=== PATIENT | male | born 1950 | race Caucasian/White ===

== ENCOUNTER → 2016-08-15 | Outpatient (CLI) | payer OTHER ==
--- NOTE | 2016-08-15 16:57 | PCVCIMAG ---
EXAM: BILATERAL CAROTID DUPLEX INDICATION: Carotid Occlusive Disease. Previous right carotid endarterectomy. FINDINGS: Doppler Measurements (centimeters per second): RIGHT: Peak CCA-64, Peak ECA-31, Diastolic ICA-30, Peak ICA-82, ICA/CCA Ratio-1.3. LEFT: Peak CCA-90, Peak ECA-151, Diastolic ICA-23, Peak ICA-78, ICA/CCA Ratio-0.9. RIGHT CAROTID: The carotid bulb has minimal plaque. The proximal internal carotid artery shows no significant stenosis. The common carotid artery shows no significant stenosis. The external carotid artery shows no significant stenosis. LEFT CAROTID: The carotid bulb has mild plaque. The proximal internal carotid artery shows <40% stenosis. The common carotid artery shows no significant stenosis. The external carotid artery shows no significant stenosis. Antegrade flow in both vertebral arteries. IMPRESSION: No significant stenosis of the right internal carotid artery with minimal plaque consistent with previous endarterectomy. <40% stenosis of the left internal carotid artery with mild plaque. LOC:[id number]
--- NOTE | 2016-08-15 16:57 | PCVCIMAG ---
EXAM: BILATERAL LOWER EXTREMITY ARTERIAL DUPLEX INDICATION: Peripheral arterial disease. Previous bilateral SFA stents. FINDINGS: Right Leg: Satisfactory arterial waveforms in the common and profunda femoral arteries. There are arterial waveforms throughout the superficial femoral artery and popliteal artery without flow-limiting stenosis. Previous stents in the proximal and distal SFA remain patent. Mild stenosis in the mid superficial femoral artery. Three-vessel runoff is present. Left Leg: Satisfactory arterial waveforms throughout the common/profunda/superficial femoral, popliteal, anterior tibial, peroneal, and posterior tibial arteries. No flow limiting stenosis seen. Previous left SFA stent is maintaining good patency. IMPRESSION: Previous right superficial femoral artery stent proximally and distally are maintaining satisfactory patency. Mild stenosis [place] mid right SFA. Previous left superficial femoral artery stent is maintaining good patency. EXAM: NONINVASIVE ARTERIAL EXAMINATION OF BOTH LOWER EXTREMITIES INCLUDING PRE AND POST EXERCISE PRESSURE MEASUREMENTS AND DOPPLER WAVEFORMS INDICATION: Peripheral Arterial Disease. Leg pain. FINDINGS: Right Brachial: 124 mm Hg. Right Dorsalis Pedis: 154 mm Hg. Right Posterior Tibial: 166 mm Hg. Right GERALD = 1.3. Left Brachial: 130 mm Hg. Left Dorsalis Pedis: 132 mm Hg. Left Posterior Tibial: 118 mm Hg. Left GERALD = 1.0. Post Exercise: Left Brachial 136 mm Hg. Right posterior tibial: 103 mm Hg. Left dorsalis pedis: 92 mm Hg. Right GERALD = 0.8. Left GERALD = 0.7. IMPRESSION: No resting ischemia in the right lower extremity. Minimal exercise induced ischemia in the right lower extremity. No resting ischemia in the left lower extremity. Minimal exercise induced ischemia in the left lower extremity. LOC:[id number]
--- NOTE | 2016-08-18 16:12 | PCVCIMAG ---
EXAM: BILATERAL LOWER EXTREMITY ARTERIAL DUPLEX INDICATION: Peripheral arterial disease. Previous bilateral SFA stents. FINDINGS: Right Leg: Satisfactory arterial waveforms in the common and profunda femoral arteries. There are arterial waveforms throughout the superficial femoral artery and popliteal artery without flow-limiting stenosis. Previous stents in the proximal and distal SFA remain patent. Mild stenosis in the mid superficial femoral artery. Three-vessel runoff is present. Left Leg: Satisfactory arterial waveforms throughout the common/profunda/ superficial femoral, popliteal, anterior tibial, peroneal, and posterior tibial arteries. No flow limiting stenosis seen. Previous left SFA stent is maintaining good patency. IMPRESSION: Previous right superficial femoral artery stent proximally and distally are maintaining satisfactory patency. Mild stenosis [place] mid right SFA. Previous left superficial femoral artery stent is maintaining good patency. EXAM: NONINVASIVE ARTERIAL EXAMINATION OF BOTH LOWER EXTREMITIES INCLUDING PRE AND POST EXERCISE PRESSURE MEASUREMENTS AND DOPPLER WAVEFORMS INDICATION: Peripheral Arterial Disease. Leg pain. FINDINGS: Right Brachial: 124 mm Hg. Right Dorsalis Pedis: 154 mm Hg. Right Posterior Tibial: 166 mm Hg. Right GERALD = 1.3. Left Brachial: 130 mm Hg. Left Dorsalis Pedis: 132 mm Hg. Left Posterior Tibial: 118 mm Hg. Left GERALD = 1.0. Post Exercise: Left Brachial 136 mm Hg. Right posterior tibial: 103 mm Hg. Left dorsalis pedis: 92 mm Hg. Right GERALD = 0.8. Left GERALD = 0.7. IMPRESSION: No resting ischemia in the right lower extremity. Minimal exercise induced ischemia in the right lower extremity. No resting ischemia in the left lower extremity. Minimal exercise induced ischemia in the left lower extremity. MTDD
== END | disposition home or self-care (01) ==
LOC: PCVCIMAG 12:32
PROVIDERS: ATTEND Nuclear Medicine Nuclear Cardiology
DX: I73.9 Peripheral vascular disease, unspecified (principal); I65.22 Occlusion and stenosis of left carotid artery; I77.89 Other specified disorders of arteries and arterioles; F17.200 Nicotine dependence, unspecified, uncomplicated; E11.9 Type 2 diabetes mellitus without complications; I48.0 Paroxysmal atrial fibrillation; I10 Essential (primary) hypertension; I25.10 Atherosclerotic heart disease of native coronary artery without angina pectoris; E78.00 Pure hypercholesterolemia, unspecified; J44.9 Chronic obstructive pulmonary disease, unspecified; Z79.82 Long term (current) use of aspirin; Z79.84 Long term (current) use of oral hypoglycemic drugs; Z79.899 Other long term (current) drug therapy
CPT/HCPCS: 93880; 93923; 93925; G0463; 93924

== ENCOUNTER → 2016-12-05 | Outpatient (CLI) | payer OTHER | END | disposition home or self-care (01) | LOC: PCVCCLINIC 14:45 | PROVIDERS: ATTEND Internal Medicine Cardiovascular Disease | DX: I25.5 Ischemic cardiomyopathy (principal); I47.2 Ventricular tachycardia; I10 Essential (primary) hypertension; N28.9 Disorder of kidney and ureter, unspecified; R94.31 Abnormal electrocardiogram [ECG] [EKG]; F17.200 Nicotine dependence, unspecified, uncomplicated; Z79.82 Long term (current) use of aspirin; Z79.899 Other long term (current) drug therapy | CPT/HCPCS: 36415; 93005; G0463 ==

== ENCOUNTER → 2016-12-26 | Outpatient (CLI) | payer OTHER | END | disposition home or self-care (01) | LOC: PCVCCLINIC 11:00 | PROVIDERS: ATTEND Internal Medicine Cardiovascular Disease | DX: I25.10 Atherosclerotic heart disease of native coronary artery without angina pectoris (principal); I48.0 Paroxysmal atrial fibrillation; I25.5 Ischemic cardiomyopathy; I47.2 Ventricular tachycardia; R94.31 Abnormal electrocardiogram [ECG] [EKG]; Z79.82 Long term (current) use of aspirin; Z79.899 Other long term (current) drug therapy; F17.200 Nicotine dependence, unspecified, uncomplicated | CPT/HCPCS: 93005; G0463 ==

== ENCOUNTER → 2017-04-10 | Outpatient (CLI) | payer MEDICARE, OTHER | END | disposition home or self-care (01) | LOC: PCVCIMAG 12:20 | DX: I73.9 Peripheral vascular disease, unspecified (principal); N28.9 Disorder of kidney and ureter, unspecified; I25.10 Atherosclerotic heart disease of native coronary artery without angina pectoris; I25.5 Ischemic cardiomyopathy; Z79.899 Other long term (current) drug therapy; Z79.82 Long term (current) use of aspirin; F17.200 Nicotine dependence, unspecified, uncomplicated | CPT/HCPCS: 36415; 93005; 93925; G0463 ==

== ENCOUNTER → 2017-08-07 | Outpatient (CLI) | payer MEDICARE, OTHER | END | disposition home or self-care (01) | LOC: PCVCCLINIC 11:44 | DX: I11.0 Hypertensive heart disease with heart failure (principal); I50.22 Chronic systolic (congestive) heart failure; I47.2 Ventricular tachycardia; Z79.899 Other long term (current) drug therapy; Z87.891 Personal history of nicotine dependence | CPT/HCPCS: 93005; G0463 ==

== ENCOUNTER → 2017-09-04 | Outpatient (CLI) | payer MEDICARE, OTHER | END | disposition home or self-care (01) | LOC: PCVCIMAG 10:41 | DX: I73.9 Peripheral vascular disease, unspecified (principal); I70.8 Atherosclerosis of other arteries | CPT/HCPCS: 93925 ==

== ENCOUNTER → 2017-09-15 | Outpatient (CLI) | payer MEDICARE, OTHER ==
[~2017-09-15] MED LIST: DIAZEPAM 10 MG TABLET.; EPTIFIBATIDE BOLUS 2,000 MCG/ML 10ML VIAL. IV; HEPARIN SODIUM 5,000 UNIT/ML VIAL for PCVC.; IODIXANOL 270 MG/ML 100 ML VIAL.; IV NORMAL SALINE 1000ML BAG 1,000 ML; LIDOCAINE 1%/EPI 1:100,000 20 ML VIAL.; MIDAZOLAM HCL/PF 2 MG/2 ML VIAL.; fentaNYL PF VIAL 100 MCG/2 ML VIAL
== END | disposition home or self-care (01) ==
LOC: PCVCINTER 07:36
DX: I70.248 Atherosclerosis of native arteries of left leg with ulceration of other part of lower leg (principal); L97.828 Non-pressure chronic ulcer of other part of left lower leg with other specified severity; I25.10 Atherosclerotic heart disease of native coronary artery without angina pectoris; I70.1 Atherosclerosis of renal artery; Z79.899 Other long term (current) drug therapy; Z87.891 Personal history of nicotine dependence; I11.0 Hypertensive heart disease with heart failure; I50.22 Chronic systolic (congestive) heart failure
CPT/HCPCS: 37186; 37221; 37229; 37233; 75710; 75716; 76937; 99152; 99153; C1725; C1751; C1757; C1760; C1769; C1876; C1885; C1887; C1894; J1327; J1644; J2250; J3010; J3490; J7030

== ENCOUNTER → 2017-10-09 | Outpatient (CLI) | payer MEDICARE, OTHER ==
[~2017-10-09] MED LIST changes: -DIAZEPAM 10 MG TABLET.; -EPTIFIBATIDE BOLUS 2,000 MCG/ML 10ML VIAL. IV; -HEPARIN SODIUM 5,000 UNIT/ML VIAL for PCVC.; -IODIXANOL 270 MG/ML 100 ML VIAL.; -IV NORMAL SALINE 1000ML BAG 1,000 ML; -LIDOCAINE 1%/EPI 1:100,000 20 ML VIAL.; -MIDAZOLAM HCL/PF 2 MG/2 ML VIAL.; +PERFLUTREN PROTEIN-A MICROSPHR 0.22 MG/ML 3 ML VIAL. IV; -fentaNYL PF VIAL 100 MCG/2 ML VIAL
== END | disposition home or self-care (01) ==
LOC: PCVCIMAG 10:31
DX: I11.0 Hypertensive heart disease with heart failure (principal); I50.22 Chronic systolic (congestive) heart failure; I25.10 Atherosclerotic heart disease of native coronary artery without angina pectoris; I47.2 Ventricular tachycardia; R60.0 Localized edema; R06.02 Shortness of breath; Z87.891 Personal history of nicotine dependence
CPT/HCPCS: 93005; C8929; G0463; Q9956

== ENCOUNTER → 2018-02-18 | Outpatient (CLI) | payer MEDICARE, OTHER ==
--- NOTE | 2018-02-18 14:12 | PCVCIMAG ---
EXAM: BILATERAL LOWER EXTREMITY ARTERIAL DUPLEX INDICATION: Peripheral Arterial Disease. Leg pain. FINDINGS: Right Leg: Common femoral and profunda femoral arteries are patent. Previous stent in the superficial femoral artery maintaining satisfactory patency. Mid [place] superficial femoral artery shows mild stenosis. Popliteal artery is patent. The anterior tibial, peroneal, and posterior tibial arteries are patent. Left Leg: Common femoral and profunda femoral arteries are patent. Previous superficial femoral artery stent maintaining good patency. Popliteal artery is patent. Mild restenosis distal tibioperoneal trunk at site of prior intervention. Posterior tibial and peroneal arteries are patent. Segmental occlusion distal anterior tibial artery. IMPRESSION: Mild stenosis mid [place] right superficial femoral artery. Previous left superficial femoral artery stent maintaining satisfactory patency. Mild restenosis distal [place] left tibioperoneal trunk at site of prior intervention. Segmental occlusion distal left anterior tibial artery. LOC:[place] [id number]
== END | disposition home or self-care (01) ==
LOC: PCVCIMAG 08:05
PROVIDERS: ATTEND Nuclear Medicine Nuclear Cardiology
DX: I73.9 Peripheral vascular disease, unspecified (principal); I48.0 Paroxysmal atrial fibrillation; I47.2 Ventricular tachycardia; I25.10 Atherosclerotic heart disease of native coronary artery without angina pectoris; I77.9 Disorder of arteries and arterioles, unspecified; J44.9 Chronic obstructive pulmonary disease, unspecified; E11.621 Type 2 diabetes mellitus with foot ulcer; L97.529 Non-pressure chronic ulcer of other part of left foot with unspecified severity; E78.00 Pure hypercholesterolemia, unspecified; N18.9 Chronic kidney disease, unspecified; Z72.0 Tobacco use; Z79.82 Long term (current) use of aspirin; Z79.4 Long term (current) use of insulin
CPT/HCPCS: 93925; G0463

== ENCOUNTER → 2018-06-02 | Outpatient (CLI) | payer MEDICARE, OTHER ==
[~2018-06-02] MED LIST changes: -PERFLUTREN PROTEIN-A MICROSPHR 0.22 MG/ML 3 ML VIAL. IV; +PERFLUTREN PROTEIN-A MICROSPHR 0.22 MG/ML 3 ML VIAL. IV ONE
--- NOTE | 2018-06-02 14:08 | PCVCIMAG ---
APPROVED REPORT Study performed: 06/02/2018 12:50:52 EXAM: Comprehensive 2D, Doppler, and color-flow Echocardiogram Patient Location: Echo lab Status: routine BSA: 2.68 BP: 140/80 mmHg Rhythm: NSR, ICD Other Information Study Quality: Technically Difficult Risk Factors: Cardiac Risk Factors: HTN, Hyperlipidemia, DM, Smoking Indications Cardiomyopathy CHF, ICD Echo Enhancing Agent Indication: Endocardial border delineation Agent(s) / Amount(s) Used: Asker cc 2D Dimensions IVSd: 10.75 (7-11mm)LVOT Diam: 25.53 (18-24mm) LVDd: 68.36 mm PWd: 9.37 (7-11mm)Ascending Ao: 35.10 (22-36mm) LVDs: 53.41 (25-40mm) Left Atrium: 49.78 (27-40mm) Aortic Root: 31.70 mm LV Single Plane 4CH: 24.60 % Volumes Left Atrial Volume (Systole) Single Plane 4CH: 74.87 mLSingle Plane 2CH: 48.00 mL LA ESV Index: 24.00 mL/m2 Aortic Valve AoV Peak [place].: 1.39 m/s AO Peak Gr.: 7.70 mmHg Mitral Valve E/A Ratio: 0.9 MV Decel. Time: 244.86 ms MV E Max Casper.: 0.86 m/s MV A Casper.: 0.92 m/s IVRT: 79.58 ms Pulmonary Valve PV Peak Gr.: 5.74 mmHg Left Ventricle Left ventricle is moderately dilated. Global hypokinesis. Apical, anteroseptal, distal, lateral akinesis. There is normal left ventricular wall thickness. Left ventricular ejection fraction is moderate to severely decreased. LVEF is 30-35%. This study is not technically sufficient to allow evaluation of the LV diastolic function. Right Ventricle The right ventricle is normal size. The right ventricular systolic function is normal. Device lead is present in the right ventricle. Atria The left atrium size is normal. Pacemaker lead is present in the right atrium. Aortic Valve The aortic valve is not well visualized. No aortic regurgitation is present. There is no aortic valvular stenosis. Mitral Valve The mitral valve is normal in structure. There is no mitral valve regurgitation noted. No evidence of mitral valve stenosis. Tricuspid Valve The tricuspid valve is normal in structure. There is no tricuspid valve regurgitation noted. Pulmonic Valve The pulmonary valve is normal in structure. There is no pulmonic valvular regurgitation. Great Vessels The aortic root is normal in size. IVC is normal in size and collapses >50% with inspiration. Pericardium There is no pericardial effusion. <Conclusion> Left ventricle is moderately dilated. There is normal left ventricular wall thickness. Left ventricular ejection fraction is moderate to severely decreased. LVEF is 30-35%. The right ventricle is normal size. The left atrium size is normal. Device lead is present in the right ventricle. The aortic valve is not well visualized. The mitral valve is normal in structure. There is no tricuspid valve regurgitation noted.
== END | disposition home or self-care (01) ==
LOC: PCVCIMAG 12:32
PROVIDERS: ATTEND Internal Medicine Cardiovascular Disease
DX: I25.10 Atherosclerotic heart disease of native coronary artery without angina pectoris (principal); I13.0 Hypertensive heart and chronic kidney disease with heart failure and stage 1 through stage 4 chronic kidney disease, or unspecified chronic kidney disease; I50.9 Heart failure, unspecified; N18.9 Chronic kidney disease, unspecified; I25.5 Ischemic cardiomyopathy; I47.2 Ventricular tachycardia; I73.9 Peripheral vascular disease, unspecified; Z79.899 Other long term (current) drug therapy; E11.9 Type 2 diabetes mellitus without complications; E78.00 Pure hypercholesterolemia, unspecified; Z87.891 Personal history of nicotine dependence
CPT/HCPCS: 93005; C8929; G0463; Q9956; 93306

== ENCOUNTER → 2018-12-02 | Outpatient (CLI) | payer MEDICARE, OTHER ==
--- NOTE | 2018-12-02 12:52 | PCVCIMAG ---
EXAM: BILATERAL CAROTID DUPLEX INDICATION: Carotid Occlusive Disease. FINDINGS: Doppler Measurements (centimeters per second): RIGHT: Peak CCA-41, Peak ECA-54, Diastolic ICA-18, Peak ICA-62, ICA/CCA Ratio-1.5. LEFT: Peak CCA-80, Peak ECA-147, Diastolic ICA-29, Peak ICA-93, ICA/CCA Ratio-1.2. RIGHT CAROTID: The carotid bulb has mild plaque. The proximal internal carotid artery shows <40% stenosis. The common carotid artery shows no significant stenosis. The external carotid artery shows no significant stenosis. LEFT CAROTID: The carotid bulb has moderate plaque. The proximal internal carotid artery shows <40% stenosis. The common carotid artery shows no significant stenosis. The external carotid artery shows no significant stenosis. Antegrade flow in both vertebral arteries. IMPRESSION: <40% stenosis of the right internal carotid artery with mild plaque. <40% stenosis of the left internal carotid artery with moderate plaque. LOC:[place] [id number]
--- NOTE | 2018-12-02 13:09 | PCVCIMAG ---
EXAM: BILATERAL LOWER EXTREMITY ARTERIAL DUPLEX INDICATION: Peripheral Arterial Disease. Leg pain. FINDINGS: Right Leg: Common femoral and profunda femoral arteries are patent. Increased systolic velocity 294 cm/s mid superficial femoral artery at the proximal margin of a prior stent consistent with 70% restenosis has increased in severity since February 2018. Popliteal artery is patent. The anterior tibial, peroneal, and posterior tibial arteries are patent. Left Leg: Common and profunda femoral arteries are patent. Superficial femoral artery and popliteal artery patent. Previous stent superficial femoral artery is patent. Tibioperoneal trunk site of intervention maintaining satisfactory patency. Anterior tibial, peroneal, and posterior tibial arteries are patent. 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 Previous left superficial femoral artery stent and previous site of intervention left tibioperoneal trunk maintaining adequate patency. LOC:[id number]
== END | disposition home or self-care (01) ==
LOC: PCVCIMAG 09:26
PROVIDERS: ATTEND Nuclear Medicine Nuclear Cardiology
DX: I65.23 Occlusion and stenosis of bilateral carotid arteries (principal)
CPT/HCPCS: 93880; 93925; G0463

== ENCOUNTER → 2018-12-07 | Outpatient (CLI) | payer MEDICARE, OTHER | END | disposition home or self-care (01) | LOC: PCVCCLINIC 15:00 | PROVIDERS: ATTEND Internal Medicine Cardiovascular Disease | DX: I73.9 Peripheral vascular disease, unspecified (principal); I25.10 Atherosclerotic heart disease of native coronary artery without angina pectoris; I42.9 Cardiomyopathy, unspecified; J44.9 Chronic obstructive pulmonary disease, unspecified; E78.00 Pure hypercholesterolemia, unspecified; E11.9 Type 2 diabetes mellitus without complications; I12.9 Hypertensive chronic kidney disease with stage 1 through stage 4 chronic kidney disease, or unspecified chronic kidney disease; N18.9 Chronic kidney disease, unspecified; Z79.82 Long term (current) use of aspirin; Z79.899 Other long term (current) drug therapy; Z79.4 Long term (current) use of insulin; Z87.891 Personal history of nicotine dependence | CPT/HCPCS: G0463 ==

== ENCOUNTER → 2019-02-09 | Outpatient (CLI) | payer MEDICARE, OTHER | END | disposition home or self-care (01) | LOC: PCVCCLINIC 10:30 | PROVIDERS: ATTEND Internal Medicine Cardiovascular Disease | DX: I25.10 Atherosclerotic heart disease of native coronary artery without angina pectoris (principal); I42.9 Cardiomyopathy, unspecified; I13.0 Hypertensive heart and chronic kidney disease with heart failure and stage 1 through stage 4 chronic kidney disease, or unspecified chronic kidney disease; E11.22 Type 2 diabetes mellitus with diabetic chronic kidney disease; I50.23 Acute on chronic systolic (congestive) heart failure; N18.9 Chronic kidney disease, unspecified; I48.0 Paroxysmal atrial fibrillation; Z83.3 Family history of diabetes mellitus; Z79.82 Long term (current) use of aspirin; Z79.4 Long term (current) use of insulin; Z82.49 Family history of ischemic heart disease and other diseases of the circulatory system; Z87.891 Personal history of nicotine dependence | CPT/HCPCS: 80061; 93283; G0463 ==